=== PATIENT | male | born 1980 | race American Indian/Alaskan Native ===

== ENCOUNTER 2021-05-18 21:32 | Emergency (ER) | payer OTHER ==
[2021-05-18] MEDS ORDERED: cefTRIAXone/NS 2 GM/100 ML 2 GM/100 ML BAG IV ONE (23:44)
[2021-05-18] MEDS ORDERED: ACETAMINOPHEN 500 MG TAB PO ONE (23:45)
[2021-05-18] MEDS ORDERED: LIDOCAINE VISCOUS 2% 15 ML ORAL LIQD PO ONE (23:45)
[2021-05-18] MEDS ORDERED: dexAMETHasone 20 MG/5 ML VIAL IV ONE (23:45)
--- NOTE | 2021-05-18 23:48 | Emergency Department Report ---
ED ENT HPI - General Chief complaint: Sore Throat Stated complaint: SORE THROAT/FEVER Time Seen by Provider: 05/18/21 23:43 Source: patient Mode of arrival: Ambulatory Limitations: No Limitations - History of Present Illness MD complaint: sore throat -: Gradual, days(s) (2) Location: throat Severity scale (0 -10): 10 Quality: aching Worsens with: swallowing Associated Symptoms: sore throat - Related Data Previous Rx's Medication Instructions Recorded Last Taken Type Amoxicillin/K Clav Tab [Augmentin 1 tab PO Q12HR #14 tab 05/19/21 Unknown Rx 875 mg] methylPREDNISolone [Medrol 4MG 4 mg PO DAILY 6 Days tab.ds.pk 05/19/21 Unknown Rx DOSEPAK (21 tabs)] Allergies Allergy/AdvReac Type Severity Reaction Status Date / Time No Known Allergies Allergy Unverified 05/18/21 23:33 ED Dental HPI - General Chief complaint: Sore Throat Stated complaint: SORE THROAT/FEVER Time Seen by Provider: 05/18/21 23:43 Source: patient Mode of arrival: Ambulatory Limitations: No Limitations - Related Data Previous Rx's Medication Instructions Recorded Last Taken Type Amoxicillin/K Clav Tab [Augmentin 1 tab PO Q12HR #14 tab 05/19/21 Unknown Rx 875 mg] methylPREDNISolone [Medrol 4MG 4 mg PO DAILY 6 Days tab.ds.pk 05/19/21 Unknown Rx DOSEPAK (21 tabs)] Allergies Allergy/AdvReac Type Severity Reaction Status Date / Time No Known Allergies Allergy Unverified 05/18/21 23:33 ED Review of Systems ROS: Stated complaint: SORE THROAT/FEVER Other details as noted in HPI Constitutional: fever ENT: throat pain Cardiovascular: denies: chest pain, dyspnea on exertion ED Past Medical Hx - Past Medical History Previous Medical History?: Yes Hx HIV: Yes - Surgical History Past Surgical History?: No - Social History Smoking Status: Never Smoker Substance Use Type: None - Medications Home Medications: Home Medications Medication Instructions Recorded Confirmed Last Taken Type Amoxicillin/K Clav Tab [Augmentin 1 tab PO Q12HR #14 tab 05/19/21 Unknown Rx 875 mg] methylPREDNISolone [Medrol 4MG 4 mg PO DAILY 6 Days tab.ds.pk 05/19/21 Unknown Rx DOSEPAK (21 tabs)] ED Physical Exam - General Limitations: No Limitations General appearance: alert, in no apparent distress - Head Head exam: Present: atraumatic, normocephalic - Eye Eye exam: Present: normal appearance - ENT ENT exam: Present: mucous membranes moist - Neck Neck exam: Present: lymphadenopathy (ant neck) - Respiratory Respiratory exam: Present: normal lung sounds bilaterally. Absent: respiratory distress - Cardiovascular Cardiovascular Exam: Present: regular rate, normal rhythm. Absent: systolic murmur, diastolic murmur, rubs, gallop - GI/Abdominal GI/Abdominal exam: Present: soft, normal bowel sounds - Rectal Rectal exam: Present: deferred - Extremities Exam Extremities exam: Present: normal inspection - Back Exam Back exam: Present: normal inspection - Neurological Exam Neurological exam: Present: alert, oriented X3 - Psychiatric Psychiatric exam: Present: normal affect, normal mood - Skin Skin exam: Present: warm, dry, intact, normal color. Absent: rash ED Course Vital Signs 05/18/21 05/18/21 05/18/21 23:32 23:33 23:35 Temperature 102.5 F H Pulse Rate 92 H Respiratory 20 20 Rate Blood Pressure Blood Pressure 144/89 [Right] O2 Sat by Pulse 97 97 Oximetry 05/18/21 05/19/21 05/19/21 23:45 00:01 00:15 Temperature Pulse Rate 94 H 92 H 102 H Respiratory 20 24 25 H Rate Blood Pressure 133/81 135/86 124/88 Blood Pressure [Right] O2 Sat by Pulse 96 96 95 Oximetry 05/19/21 05/19/21 05/19/21 00:31 00:45 01:01 Temperature Pulse Rate 88 87 78 Respiratory 25 H 23 21 Rate Blood Pressure 123/73 126/71 116/74 Blood Pressure [Right] O2 Sat by Pulse 97 96 95 Oximetry 05/19/21 05/19/21 05/19/21 01:15 01:31 01:45 Temperature Pulse Rate 75 85 81 Respiratory 17 21 17 Rate Blood Pressure 120/72 117/75 110/72 Blood Pressure [Right] O2 Sat by Pulse 96 94 93 Oximetry 05/19/21 05/19/21 05/19/21 02:01 02:15 02:31 Temperature Pulse Rate 86 75 83 Respiratory 13 18 15 Rate Blood Pressure 109/73 117/68 129/82 Blood Pressure [Right] O2 Sat by Pulse 97 96 96 Oximetry 05/19/21 02:45 Temperature Pulse Rate 80 Respiratory 18 Rate Blood Pressure 129/82 Blood Pressure [Right] O2 Sat by Pulse 96 Oximetry ED Medical Decision Making - Lab Data Result diagrams: 05/18/21 23:55 05/18/21 23:55 Critical care attestation.: If time is entered above; I have spent that time in minutes in the direct care of this critically ill patient, excluding procedure time. ED Disposition Clinical Impression: Acute pharyngitis Qualifiers: Pharyngitis/tonsillitis etiology: other specified organisms Qualified Code(s): J02.8 - Acute pharyngitis due to other specified organisms Disposition: DC-01 TO HOME OR SELFCARE Is pt being admited?: No Does the pt Need Aspirin: No Condition: Stable Instructions: Upper Respiratory Infection, Adult, Pharyngitis Prescriptions: Amoxicillin/K Clav Tab [Augmentin 875 mg] 1 tab PO Q12HR #14 tab methylPREDNISolone [Medrol 4MG DOSEPAK (21 tabs)] 4 mg PO DAILY 6 Days tab.pk Referrals: AVIS JOSHICUTLER MD ERNIE [Primary Care Provider] - 3-5 Days Forms: Work/School Release Form(ED)
[2021-05-19 00:14] LABS: Basophils # (Auto) 0.1 K/mm3 (0.0-0.1); Basophils % (Auto) 0.4 % (0.0-1.8); Hematocrit 46.5 % (35.5-45.6); Hemoglobin 15.5 gm/dl (11.8-15.2); Lymphocytes # (Auto) 1.6 K/mm3 (1.2-5.4); Lymphocytes % (Auto) 10.3 % (13.4-35.0); Mean Corpuscular HGB Conc 33 % (32-34); Mean Corpuscular Volume 94 fl (84-94); Monocytes # (Auto) 1.4 K/mm3 (0.0-0.8); Red Blood Count 4.97 M/mm3 (3.65-5.03)
[2021-05-19 00:19] LABS: Platelet Count 318 K/mm3 (140-440)
[2021-05-19 00:36] LABS: Alanine Aminotransferase 16 units/L (7-56); Albumin 4.5 g/dL (3.9-5); BUN/Creatinine Ratio 8; Blood Urea Nitrogen 9 mg/dL (9-20); Calcium 9.1 mg/dL (8.4-10.2); Hemolysis Index 80
[2021-05-19 03:12] VITALS: BP 129/82
== END 2021-05-19 03:25 | disposition home or self-care (01) ==
LOC: ED 21:32
DX: J02.9 Acute pharyngitis, unspecified (principal); Z79.2 Long term (current) use of antibiotics; Z79.899 Other long term (current) drug therapy; Z21 Asymptomatic human immunodeficiency virus [HIV] infection status
CPT/HCPCS: 36415; 80053; 85025; 87116; 87430; 96365; 96375; 99283; J0696; J1100